=== PATIENT | female | born 1950 | race Caucasian/White ===

== ENCOUNTER 2016-05-05 10:01 | Inpatient (IN) | payer MEDICARE, BC ==
[~2016-05-05] VITALS: Ht 152.4 cm; Wt 47.8 kg
[2016-05-05] VITALS (20 sets, daily range): BP systolic 86–130; BP diastolic 53–67; PULSE 76–86; RESP 12–26; Ht 152.4 cm; Wt 47.8 kg
[~2016-05-05 10:01] MED LIST: CEFAZOLIN 2 GM/50 ML (PMX) 50 ML IVPB SCH; LACTATED RINGER'S 1L BAG IV* SCH
[2016-05-05] MEDS ORDERED: LIDOCAINE 2% (SDV) 5 ML INJ ONE (10:21)
[2016-05-05] MEDS ORDERED: FENTAnyl 50 MCG/ML VIAL ONE (10:21)
[2016-05-05] MEDS ORDERED: MIDAZOLAM 1 MG/ML 2 ML INJ ONE (10:21)
[2016-05-05] MEDS ORDERED: NEOSTIGMINE 3 MG/3 ML SYRINGE ONE (10:21)
[2016-05-05] MEDS ORDERED: ROCURONIUM 50 MG INJ ONE (10:21)
[2016-05-05] MEDS ORDERED: GLYCOPYRROLATE 1 MG INJ ONE (10:21)
[2016-05-05] MEDS ORDERED: PROPOFOL 20 ML ONE (10:21)
[2016-05-05] MEDS ORDERED: SUCCINYLCHOLINE CHLORIDE 100 MG/5 ML SYG IV ONE (10:22)
[2016-05-05] MEDS ORDERED: PROPOFOL 100 ML ONE (10:43)
[2016-05-05] MEDS ORDERED: BUPIVACAINE 0.25%/EPI (SDV) 30 ML INJ ONE ×2 (11:07→13:07)
[2016-05-05] MEDS ORDERED: SURGIFOAM POWDER 1 GM KIT ONE (11:07)
[2016-05-05] MEDS ORDERED: THROMBIN 5000 UNIT VIAL ONE ×2 (11:08→14:07)
[2016-05-05] MEDS ORDERED: CA CHLORIDE 10% 10 ML SYRINGE ONE ×2 (11:08→13:49)
[2016-05-05] MEDS ORDERED: POLYMYXIN/BACITRACIN 1L IRRIG ONE (11:08)
[2016-05-05] MEDS ORDERED: LEVO100T87 PO (11:18)
[2016-05-05] MEDS ORDERED: HRT ORAL (11:18)
--- NOTE | 2016-05-05 11:35 | HPN ---
Date/Time of Note Date/Time of Note DATE: 05/05/16 TIME: 11:35 Interval H&P Admission Note Pt. seen H&P reviewed: No system changes CHRIS POTTER PA-C May 05, 2016 11:35
[2016-05-05] MEDS ORDERED: CARISOPRODOL 350 MG TAB PO PRN (12:00)
[2016-05-05] MEDS ORDERED: ZOLPIDEM 5 MG TAB PO PRN (12:00)
[2016-05-05] MEDS ORDERED: BISACODYL 10 MG SUPP PR PRN (12:00)
[2016-05-05] MEDS ORDERED: DIPHENHYDRAMINE 50 MG INJ IV PRN ×2 (12:00→15:30)
[2016-05-05] MEDS ORDERED: HYDROmorphONE 1 MG/ML SYG IV PRN (12:00)
[2016-05-05] MEDS ORDERED: ACETAMINOPHEN 325 MG TAB PO PRN (12:00)
[2016-05-05] MEDS ORDERED: NALOXONE (0.4 MG/ML) INJ IV PRN (12:00)
[2016-05-05] MEDS ORDERED: traMADol 50 MG TAB PO PRN ×2 (12:00)
[2016-05-05] MEDS: D5W-0.45 NACL + KCL 20 MEQ 1,000 ML IV SCH ×3 (12:00→22:00)
[2016-05-05] MEDS ORDERED: AL HYDROX/MG HYDROX/SIMETH 30 ML CUP PO PRN (12:00)
[2016-05-05] MEDS ORDERED: CEPASTAT LOZENGE MT PRN (12:00)
[2016-05-05] MEDS ORDERED: HYDROmorphONE 0.2 MG/ML PCA IV SCH (12:00)
[2016-05-05] MEDS: CEFAZOLIN 1 GM/50 ML (PMX) 50 ML IVPB SCH ×2 (12:35→19:21)
[2016-05-05] MEDS ORDERED: DEXAMETHASONE 4 MG/ML 1 ML INJ ONE (12:37)
[2016-05-05] MEDS ORDERED: ONDANSETRON 4 MG INJ ONE (12:37)
[2016-05-05] MEDS ORDERED: EPHEDrine SULFATE 50 MG/5 ML SYG ONE (12:52)
[2016-05-05] MEDS ORDERED: CEFAZOLIN 1 GM INJ ONE (13:09)
--- NOTE | 2016-05-05 13:57 | RADRPT ---
PROCEDURE: XR Lumbar Spine. CLINICAL INDICATION: Back pain, intraoperative lumbar spine film. TECHNIQUE: Intraoperative cross-table lateral views of the lumbar spine were performed. COMPARISON: No prior studies are available for comparison. FINDINGS: Final images demonstrate intraoperative spinal markers between the spinous processes of L2 and L3, L 3 and L4, and L4 and L5. Lumbar spine demonstrates a normal lordosis diffuse osteopenia is seen.. Grade 1 anterolisthesis of L4-L5 by approximately 4 mm is noted. No fractures or destructive bony lesions are observed. Mild intervertebral disk space narrowing is seen throughout the spine. Facet arthrosis is noted througho ut the spine. Calcified atherosclerosis is seen in the aorta. IMPRESSION: Intraoperative spinal markers between the spinous processes L2 and L3, L3 and L4, and L4 and L5. Mild degenerative disk disease throughout the lumbar spine. Facet arthrosis throughout the lumbar spine. Calcified atherosclerosis in the aorta. Please see procedure note for details. Call report: A call report of the findings was made to Dr. Harmon in the O.R. at 1:56 PM on . RPTAT: AA .Axel Connolly MD, MD Date Time Electronically viewed and signed by .Axel Connolly MD, MD on 05/05/2016 13:57 .P/
[2016-05-05] MEDS ORDERED: GELATIN SIZE 100 SPONGE ONE (14:07)
[2016-05-05] MEDS ORDERED: THROMBIN(HUM PLAS)/FIBRINOG/CA 5 ML VIAL TOP ONE (14:31)
[2016-05-05] MEDS ORDERED: ATROPINE 1 MG/10 ML SYRINGE IV PRN (15:30)
[2016-05-05] MEDS ORDERED: EPHEDrine SULFATE 50 MG/5 ML SYG IV PRN (15:30)
[2016-05-05] MEDS ORDERED: FENTAnyl 50 MCG/ML VIAL IV PRN ×2 (15:30)
[2016-05-05] MEDS ORDERED: hydrALAzine 20 MG INJ IV PRN (15:30)
[2016-05-05] MEDS ORDERED: MEPERIDINE 25 MG INJ IV PRN (15:30)
[2016-05-05] MEDS ORDERED: ONDANSETRON 4 MG INJ IV PRN (15:30)
[2016-05-05] MEDS ORDERED: MIDAZOLAM 1 MG/ML 2 ML INJ IV PRN (15:30)
[2016-05-05] MEDS ORDERED: OXYCODONE/ACETAMINOPHEN (5/325) TAB PO PRN (15:30)
[2016-05-05] MEDS ORDERED: LABETALOL HCL 20MG INJ IV PRN (15:30)
--- NOTE | 2016-05-05 17:48 | CONS ---
Date/Time of Note Date/Time of Note DATE: 05/05/16 TIME: 17:42 Assessment/Plan Assessment/Plan Problems: (1) Acquired hypothyroidism Status: Chronic Comment: She will be continued on her outpatient dosage of levothyroxine. Please know regarding her hormone replacement therapy with Activella that will be on hold temporarily can be resumed when she is successfully postop (2) Status post lumbar laminectomy Status: Acute Comment: She seen in the postanesthesia care unit postoperatively. At this time there is no evidence of untoward side effect or postoperative complications. Patient is fully awake and alert. We will keep an eye on her exam especially regarding any type of soft tissue injury Consultation Date/Type/Reason Admit Date/Time May 05, 2016 at 10:01 Date of Consultation: May 05, 2016 Type of Consultation: Internal medicine Reason for Consultation Postoperative management of medical issues Referring Provider: JASON BLEDSOE MD Pleasant 65-year-old female immediately postop from back surgery. At this time she is conversant awake and alert. She does complains of some tenderness in the right upper lip area and pain in her back. Constitutional: no complaints (No fevers chills or sweats) Eyes: no complaints ENT: no complaints Respiratory: no complaints (No shortness of breath) Cardiovascular: no complaints (No chest pain no palpitations) Gastrointestinal: no complaints (No nausea no vomiting) Genitourinary: no complaints Musculoskeletal: back pain (Surgical incision site) Skin: other (Pain right upper lip area) Neurologic: no complaints Endocrine: no complaints Lymphatic: no complaints Psychological: nl mood/affect, no complaints Past Medical History History colon cancer status post hemicolectomy Medical History: hypothyroid Past Surgical History Status post C-spine laminectomy; status post tonsillectomy; status post hemicolectomy Family History Significant Family History: vascular disease (Status post CVA in father) Social History Alcohol Use: none Smoking Status: Former smoker Drug Use: none Exam/Review of Systems Vital Signs Vitals Vital Signs Date Time Temp Pulse Resp B/P Pulse Ox O2 Delivery O2 Flow Rate FiO2 05/05/16 17:27 23 05/05/16 17:26 84 115/63 100 Nasal Cannula 05/05/16 17:17 2.0 05/05/16 16:39 98.6 Exam Constitutional: alert, oriented Psych: nl mood/affect, no complaints Head: atraumatic, normocephalic Eyes: EOMI, nl conjunctiva, nl lids, nl sclera ENMT: mucosa pink and moist, nl external ears & nose, nl nasal mucosa & septum , other (Some bruising on the right upper lip) Neck: non-tender, supple Respiratory: clear to auscultation, normal air movement Cardiovascular: nl pulses, regular rate and rhythm Gastrointestinal: nl liver, spleen, non-tender, soft Extremities: normal pulses Neurological: DRYING CAN WORKER II-XII intact, nl mental status, nl speech, nl strength Skin: other (See above) Medications Medications Current Medications Lactated Ringer's 1000 ml 1,000 ml OC IV* ; Start 05/05/16 at 06:00; Stop at 19:00 Potassium Chloride/Dextrose/ Sod Cl (D5-1/2ns + KCl 20 Meq) 1,000 ml @ 100 mls/ hr Q10H IV ; Start 05/05/16 at 12:00 Hydromorphone HCl 0.2 mg 0.2 mg Q1H PRN IV BREAKTHROUGH PAIN; Start 05/05/16 at 12:00 Cefazolin Sodium (Ancef 1 Gm/50 ml (Pmx)) 50 ml @ 100 mls/hr Q8H IVPB ; Start 05/05/16 at 12:00; Stop 05/06/16 at 04:29 Zolpidem Tartrate (Ambien) 5 mg HS PRN PO INSOMNIA; Start 05/05/16 at 12:00 Ondansetron HCl (Zofran Inj) 4 mg Q6H PRN IV NAUSEA AND/OR VOMITING; Start at 12:00 Bisacodyl (Dulcolax Supp) 10 mg DAILY PRN [place] CONSTIPATION; Start 05/05/16 at 12 :00 Docusate Sodium (Colace) 100 mg BID PO ; Start 05/05/16 at 21:00 Al Hydrox/Mg Hydrox/Simethicone (Mag-Al Plus) 15 ml Q6H PRN PO CONSTIPATION/ DYSPEPSIA; Start 05/05/16 at 12:00 Acetaminophen (Tylenol Tab) 650 mg Q4H PRN PO HILARIO OR TEMP GREATER THAN 101.3F; Start 05/05/16 at 12:00 Carisoprodol (Soma) 350 mg TID PRN PO MUSCLE SPASMS; Start 05/05/16 at 12:00 Phenol (Cepastat Lozenge) 1 lozenge PRN PRN MT SORE THROAT; Start 05/05/16 at 12:00 Diphenhydramine HCl (Benadryl) 25 mg Q6H PRN IV ITCHING; Start 05/05/16 at 12: 00 Naloxone HCl (Narcan) 0.2 mg Q2M PRN IV RR 8 BREATHS/MIN OR LESS; Start at 12:00 Hydromorphone HCl (Dilaudid QUILL COLLECTOR) QUILL COLLECTOR to be started in PACU Q4PCA IV Last administered on 05/05/16t 16:48; Admin Dose 6 MG; Start 05/05/16 at 12:00; Status Future Hold Miscellaneous Information 1. Hold QUILL COLLECTOR at 1,000... QUILL COLLECTOR IV ; Start 05/05/16 at 12: 00 Tramadol HCl (Ultram) 100 mg ONCE@0930 PO ; Start 05/06/16 at 09:30; Stop at 12:00 Tramadol HCl (Ultram) 50 mg Q4H PRN PO PAIN LEVEL 1-5; Start 05/06/16 at 10:00 Tramadol HCl (Ultram) 100 mg Q4H PRN PO PAIN LEVEL 6-10; Start 05/06/16 at 10: 00 JORGE SAL MD May 05, 2016 17:48
--- NOTE | 2016-05-05 19:38 | OPR ---
DATE OF OPERATION: 05/05/2016 PREOPERATIVE DIAGNOSIS: L4-L5, L5-S1 spondylolisthesis and stenosis. POSTOPERATIVE DIAGNOSES: 1. L4-L5, L5-S1 spondylolisthesis and stenosis. 2. Dural tear. PROCEDURE: 1. Central decompressive laminectomy at L3-L4 and L4-L5 with decompression of L3, L4, L5 nerve root s bilaterally. 2. Dural repair x2 with Duragen and Evicel as well as 4-0 Nurolon stitch. 3. Use of operative microscope. 4. Lateral localizing film x2. 5. Intraoperative neuromonitoring (3 hours). PRIMARY SURGEON: Carlitos Harmon MD CONTESTANT COORDINATOR: Hawa Walden PA-C NEED FOR OFFICE MACHINES SALES REPRESENTATIVE: During this spinal surgical procedure, my patient clerical assistant was used to retrac t and protect the spinal nerves and dural sac. My patient clerical assistant also employed the suction catheters to evacuate blood from the surgical field to improve visualization of the neural structures. The miguel tant was medically necessary to facilitate the completion of the surgery in a safe and expeditious m rasheed. State of [place] regulations, as well as hospital bylaws, preclude the use of non-license d health care personnel, such as operating room technicians, to perform these functions. FINDINGS: Neuromonitoring at start of the case revealed bilateral L3 amplitude down 30%, bilateral L4 amplitude down 70%, left L5 amplitude down 30%, right L5 amplitude down 60%, left S1 amplitude do wn 40%, right S1 amplitude down 30%. The patient had severe stenosis at L3-L4 and L4-L5 with listhe sis and diastasis of the L3-L4 facet joint. A dural tear was encountered at the L3-L4 level bilater ally. ESTIMATED BLOOD LOSS: 125 mL DRAINS: One. SPECIMENS: 1. Spinous process of L3 and L4. 2. Possible ligamentum cyst. COMPLICATIONS OF PROCEDURES: Dural tear was encountered. ANESTHESIOLOGIST: Grady Navarrete MD TYPE OF ANESTHESIA: General. HISTORY AND INDICATIONS FOR PROCEDURE: This is a 65-year-old female who has had previous laminectom y in the cervical spine. She developed radiculopathy in lower extremities from spinal stenosis in l umbar spine. She had failed nonoperative measures. Therefore, I recommended proceeding with the ab ove-mentioned surgery. Preoperatively discussed risks, benefits and alternatives. She understood a nd wished to proceed. DESCRIPTION OF PROCEDURE IN DETAIL: The patient was identified in preoperative holding area, given Ancef antibiotic, taken to the operating room, where she was successfully placed under general anest hesia by Dr. Navarrete. Neuromonitoring leads were placed. Sequential compressive devices were applie d. Francis catheter was introduced. Neuromonitoring was utilized during the procedure for 3 hours an d 15 minutes to include SSEP, MEP and EMG. Start time was 1:15, closure time was 4:15 p.m. The patient was placed in downward turned prone position over William frame. All bony prominences we re padded. The back was then prepped, draped in usual sterile fashion. Spinal needles were placed and lateral localizing films obtained to confirm the correct levels. Once this was confirmed, the p araspinal musculature was injected with 0.25% Marcaine and epinephrine. Incision was then made over the L3-L4 and L4-L5 levels. Incision was taken down to the dorsal fascia, which was incised with B ovie cautery. Then subperiosteally dissected the L3 and L4 lamina bilaterally. The patient had sac ralized L5. She had excessive lordosis. I placed Kochers around the spinous processes and took a l ateral film to confirm the correct levels. Once this was confirmed, central decompressive laminecto my was performed at the L3-L4 and L4-L5 levels using Addie rongeurs, Emmaell rongeurs, curettes an d Kerrison punches. I decompressed the lateral recess and removed the ligamentum flavum centrally a nd decompressed the L3, L4, L5 nerve roots bilaterally. The ligamentum flavum on the right side was quite adherent to the dura, and I was suspicious that there may be a ligamentum cyst here, and ther efore the ligamentum flavum was sent for specimen. I encountered tearing of the dura bilaterally at the L3-L4 level at the location where the stenosis was occurring. The tear was essentially just th rough the dura, and it was unclear if this was due to erosion. Given the tears, I brought the micro scope in. I spent 60 minutes repairing both tears. I used 4-0 Nurolon stitches under the microscop e and put running sutures through the tears bilaterally. This gave a good closure, but to augment t his, after irrigating the wound, I placed DuraGen followed by placement of Evicel while respirations were held for 2 to 3 minutes. Once this was done, the microscope was taken off the field. I place d a deep subfascial drain and closed deep fascia with #1 Stratafix suture. Closed subcutaneous tiss ue with 2-0 Vicryl stitch. A 4-0 Monocryl closure was then performed. Dermabond with sterile dress ings then applied. The patient was then awakened from anesthesia and taken to recovery room in stab le condition. Lap, sponge and instrument counts correct x2. The patient will be admitted to [facility] for routine postoperative care to include pain contr ol, neurovascular checks and antibiotic therapy. Physical therapy will be held, and on postop day 1 , we will check if she has any headaches. If there are no headaches, will allow her to get out of b ed. Otherwise, she will have just bathroom privileges. This was discussed with her in [facility] after the case. Dictated By: CARLITOS PEDERSEN/DEVIKA Conf#: [id number] DID#: [id number]
[2016-05-05] MEDS: DOCUSATE SODIUM 100 MG CAP PO SCH (21:00)
[2016-05-05] MEDS ORDERED: VITAMIN A & D 5 GM OINT PACKET TOP ONE (22:32)
[2016-05-06] MEDS: CEFAZOLIN 1 GM/50 ML (PMX) 50 ML IVPB SCH (04:17)
[2016-05-06 05:03] LABS: BASOPHILS % 0.1 % (0.0-2.0); HEMATOCRIT 35.1 % (37.0-47.0); LYMPHOCYTES # 0.7 10^3/ul (0.8-2.9); LYMPHOCYTES % 6.5 % (15.0-51.0); MEAN CORPUSCULAR HEMOGLOBIN 32.5 pg (29.0-33.0); MEAN CORPUSCULAR HGB CONC 34.3 g/dl (32.0-37.0); MEAN CORPUSCULAR VOLUME 94.8 fl (82.0-101.0); MEAN PLATELET VOLUME 8.1 fl (7.4-10.4); MONOCYTE # 0.7 10^3/ul (0.3-0.9); MONOCYTES % 6.7 % (0.0-11.0); NEUTROPHIL # 8.8 10^3/ul (1.6-7.5); NEUTROPHILS % 86.7 % (39.0-77.0); PLATELET COUNT 151 10^3/UL (140-440); RED CELL DISTRIBUTION WIDTH 12.9 % (11.5-14.5); UNCORRECTED WBC 10.1 10^3/ul (4.8-10.8); WHITE BLOOD COUNT 10.1 10^3/ul (4.8-10.8)
[2016-05-06 05:06] LABS: CONDITION 1
[2016-05-06 05:36] LABS: POTASSIUM 4.8 mmol/L (3.5-5.1)
[2016-05-06 05:38] LABS: CREATININE 0.97 mg/dl (0.44-1.00)
[2016-05-06 05:39] LABS: CALCIUM 8.6 mg/dl (8.4-10.2); MAGNESIUM 1.7 mg/dl (1.7-2.5)
[2016-05-06] MEDS: LEVOTHYROXINE 100 MCG TAB PO SCH (05:42)
[2016-05-06] MEDS: ONDANSETRON 4 MG INJ IV PRN (05:43)
[2016-05-06 07:00] VITALS: BP 109/69; RESP 20
[2016-05-06] MEDS ORDERED: CAFFEINE 200 MG TABLET PO STA (08:17)
--- NOTE | 2016-05-06 08:22 | PN ---
Date/Time of Note Date/Time of Note DATE: 05/06/16 TIME: 08:20 Assessment/Plan Lines/Catheters IV Catheter Type (from Nrs): Peripheral IV Francis in Place (from Nrs): Yes Assessment/Plan Assessment/Plan The patient is one day status post lumbar decompression with dural tear and repair. She has a headache today but states that she gets headaches daily. I will prescribe caffeine tablets and a bolus of normal saline and reevaluate her in a few hours to see if we can get her out of bed and start therapy. Subjective 24 Hr Interval Summary Complains of headaches and nausea Exam/Review of Systems Vital Signs Vitals Vital Signs Date Time Temp Pulse Resp B/P Pulse Ox O2 Delivery O2 Flow Rate FiO2 05/06/16 07:00 97.7 86 20 109/69 97 05/05/16 21:05 Nasal Cannula 2.0 Intake and Output 05/05/16 05/05/16 05/06/16 15:00 23:00 07:00 Intake Total 1100 ml 1900 ml Output Total 445 ml 1440 ml Balance 655 ml 460 ml Exam Free Text/Dictation The patient is neurovascularly intact aside from numbness in the feet. She is alert and oriented. She has no calf tenderness. Results Result Diagram: 05/06/16 0428 05/06/16 0428 JASON BLEDSOE MD May 06, 2016 08:22
[2016-05-06] MEDS ORDERED: SOD CHLORIDE 0.9% 500 ML IV ONE (08:30)
[2016-05-06] MEDS: DOCUSATE SODIUM 100 MG CAP PO SCH ×2 (09:11→20:50)
[2016-05-06] MEDS ORDERED: traMADol 50 MG TAB PO SCH (09:30)
[2016-05-06] MEDS ORDERED: traMADol 50 MG TAB PO PRN (10:00)
[2016-05-06] MEDS: D5W-0.45 NACL + KCL 20 MEQ 1,000 ML IV SCH (12:09)
--- NOTE | 2016-05-06 14:08 | PN ---
Date/Time of Note Date/Time of Note DATE: 05/06/16 TIME: 14:06 Assessment/Plan VTE Prophylaxis VTE Prophylaxis Intervention: SCD's Lines/Catheters IV [facility] Peripheral IV Urinary Cath still in place: Yes Reason Cath still needed: urinary retention Assessment/Plan Problems: (1) Headache disorder Status: Chronic Comment: Careful review of systems and history with this disorder suggests this is actually a migrainous variant. What she describes as sinus symptoms are actually her prodrome or aura with a runny nose as is inversion of the autonomic discharge. No additional medications are presently indicated. (2) Acquired hypothyroidism Status: Chronic Comment: On replacement therapy (3) Status post lumbar laminectomy Status: Acute Comment: Recuperating nicely. Please see Dr. Harmon's note Subjective 24 Hr Interval Summary Constitutional: no complaints Eyes: no complaints ENT: no complaints Respiratory: no complaints Cardiovascular: no complaints Gastrointestinal: no complaints Neurologic: headache Exam/Review of Systems Vital Signs Vitals Vital Signs Date Time Temp Pulse Resp B/P Pulse Ox O2 Delivery O2 Flow Rate FiO2 05/06/16 10:00 20 05/06/16 07:00 97.7 86 109/69 97 05/05/16 21:05 Nasal Cannula 2.0 Intake and Output 05/05/16 05/05/16 05/06/16 15:00 23:00 07:00 Intake Total 1100 ml 1900 ml Output Total 445 ml 1440 ml Balance 655 ml 460 ml Exam Constitutional: alert, oriented Neck: non-tender, supple Respiratory: clear to auscultation, normal air movement Cardiovascular: nl pulses, regular rate and rhythm Gastrointestinal: nl liver, spleen, non-tender, soft Results Result Diagram: 05/06/16 0428 05/06/16 0428 Results 24 hrs Laboratory Tests Test 05/06/16 04:28 Anion Gap 13 Basophils # 0.0 Basophils % 0.1 Blood Urea Nitrogen 17 Calcium Level 8.6 Carbon Dioxide Level 27 Chloride Level 104 Creatinine 0.97 Eosinophils # 0.0 Eosinophils % 0.0 Glucose Level 125 Hematocrit 35.1 L Hemoglobin 12.0 Lymphocytes # 0.7 L Lymphocytes % 6.5 L Magnesium Level 1.7 Mean Corpuscular Hemoglobin 32.5 Mean Corpuscular Hemoglobin Concent 34.3 Mean Corpuscular Volume 94.8 Mean Platelet Volume 8.1 Monocytes # 0.7 Monocytes % 6.7 Neutrophils # 8.8 H Neutrophils % 86.7 H Nucleated Red Blood Cells # 0.0 Nucleated Red Blood Cells % 0.0 Platelet Count 151 Potassium Level 4.8 Red Blood Count 3.70 L Red Cell Distribution Width 12.9 Sodium Level 139 White Blood Count 10.1 Medications Medications Current Medications Potassium Chloride/Dextrose/ Sod Cl (D5-1/2ns + KCl 20 Meq) 1,000 ml @ 100 mls/ hr Q10H IV Last administered on 05/06/16 12:09; Admin Dose 100 MLS/HR; Start 05/05/16 at 12:00 Hydromorphone HCl (Dilaudid) 0.2 mg Q1H PRN IV BREAKTHROUGH PAIN; Start at 12:00 Zolpidem Tartrate (Ambien) 5 mg HS PRN PO INSOMNIA; Start 05/05/16 at 12:00 Ondansetron HCl (Zofran Inj) 4 mg Q6H PRN IV NAUSEA AND/OR VOMITING Last administered on 05/06/16 05:43; Admin Dose 4 MG; Start 05/05/16 at 12:00 Bisacodyl (Dulcolax Supp) 10 mg DAILY PRN [place] CONSTIPATION; Start 05/05/16 at 12 :00 Docusate Sodium (Colace) 100 mg BID PO Last administered on 05/06/16 09:11; Admin Dose 100 MG; Start 05/05/16 at 21:00 Al Hydrox/Mg Hydrox/Simethicone (Mag-Al Plus) 15 ml Q6H PRN PO CONSTIPATION/ DYSPEPSIA; Start 05/05/16 at 12:00 Acetaminophen (Tylenol Tab) 650 mg Q4H PRN PO HILARIO OR TEMP GREATER THAN 101.3F; Start 05/05/16 at 12:00 Carisoprodol (Soma) 350 mg TID PRN PO MUSCLE SPASMS; Start 05/05/16 at 12:00 Phenol (Cepastat Lozenge) 1 lozenge PRN PRN [place] SORE THROAT; Start 05/05/16 at 12:00 Diphenhydramine HCl (Benadryl) 25 mg Q6H PRN IV ITCHING; Start 05/05/16 at 12: 00 Naloxone HCl (Narcan) 0.2 mg Q2M PRN IV RR 8 BREATHS/MIN OR LESS; Start at 12:00 Hydromorphone HCl (Dilaudid OCCUPATIONAL THERAPY TECHNICIAN) OCCUPATIONAL THERAPY TECHNICIAN to be started in PACU Q4PCA IV Last administered on 05/05/16 16:48; Admin Dose 6 MG; Start 05/05/16 at 12:00; Status Future Hold Miscellaneous Information 1. Hold OCCUPATIONAL THERAPY TECHNICIAN at 1,000... OCCUPATIONAL THERAPY TECHNICIAN IV ; Start 05/05/16 at 12: 00 Tramadol HCl (Ultram) 50 mg Q4H PRN PO PAIN LEVEL 1-5; Start 05/06/16 at 10:00 Tramadol HCl (Ultram) 100 mg Q4H PRN PO PAIN LEVEL 6-10; Start 05/06/16 at 10: 00 Levothyroxine Sodium (Synthroid) 100 mcg DAILY@06 PO Last administered on 05:42; Admin Dose 100 MCG; Start 05/06/16 at 06:00 JORGE SAL MD May 06, 2016 14:08
[2016-05-06 15:04] VITALS: BP 106/58; PULSE 81; RESP 18
[2016-05-06] MEDS: traMADol 50 MG TAB PO PRN (19:24)
[2016-05-06 19:46] VITALS: BP 106/57; RESP 18
[2016-05-07] MEDS: ONDANSETRON 4 MG INJ IV PRN ×4 (03:35→15:18)
[2016-05-07] MEDS: traMADol 50 MG TAB PO PRN (03:40)
[2016-05-07] MEDS: LEVOTHYROXINE 100 MCG TAB PO SCH (05:41)
[2016-05-07 07:49] VITALS: BP 115/57; RESP 19
[2016-05-07] MEDS: DOCUSATE SODIUM 100 MG CAP PO SCH ×2 (09:09→20:40)
--- NOTE | 2016-05-07 09:39 | PN ---
Date/Time of Note Date/Time of Note DATE: 05/07/16 TIME: 09:37 Assessment/Plan Lines/Catheters IV Catheter Type (from Nrs): Peripheral IV Francis in Place (from Nrsg): No Assessment/Plan Assessment/Plan The patient is status post decompression complicated by dural tear which was repaired. The patient is having headaches and nausea. She gets daily headaches but this appears different. This could be due to the CSF leak and as such I have held physical therapy and will place her on bed rest with bathroom privileges. I put the drain to gravity suction only. I cannot tell if there is CSF in the drain. I will reevaluate her in several hours. Subjective 24 Hr Interval Summary Complains of nausea and headache Exam/Review of Systems Vital Signs Vitals Vital Signs Date Time Temp Pulse Resp B/P Pulse Ox O2 Delivery O2 Flow Rate FiO2 05/07/16 07:49 99.7 89 19 115/57 94 05/06/16 15:04 Room Air 05/05/16 21:05 2.0 Intake and Output 05/06/16 05/06/16 05/07/16 15:00 23:00 07:00 Intake Total 1500 ml 600 ml Output Total 1210 ml 80 ml Balance 290 ml 520 ml Exam Free Text/Dictation There is drainage on the bandages. The patient is neurovascularly intact Results Result Diagram: 05/06/16 0428 05/06/16 0428 JASON BLEDSOE MD May 07, 2016 09:39
--- NOTE | 2016-05-07 17:59 | PN ---
Date/Time of Note Date/Time of Note DATE: 05/07/16 TIME: 17:57 Assessment/Plan VTE Prophylaxis VTE Prophylaxis Intervention: other Lines/Catheters IV [facility] Saline Lock Urinary Cath still in place: No Assessment/Plan Problems: (1) Headache disorder Status: Chronic Comment: Noted. At this time is settling down (2) Status post lumbar laminectomy Status: Acute Comment: As per the dictations from Dr. Rob France. It is quite possible she has a CSF leak after the dural tear. Continue to observe her I am not under the impression that she is developing a major untoward complications and again there is been no evidence of infection or signs of infection Subjective 24 Hr Interval Summary Free Text/Dictation Patient reports that she had a rather significant headache earlier today with nausea that is settling down now. She denies any chest pain shortness of breath Constitutional: no complaints (Denies fevers chills or sweats) Respiratory: no complaints (No shortness of breath) Cardiovascular: no complaints (No chest pain palpitations) Gastrointestinal: no complaints (Nausea has resolved and she is eating dinner) Genitourinary: no complaints Exam/Review of Systems Vital Signs Vitals Vital Signs Date Time Temp Pulse Resp B/P Pulse Ox O2 Delivery O2 Flow Rate FiO2 05/07/16 07:49 99.7 89 19 115/57 94 05/06/16 15:04 Room Air 05/05/16 21:05 2.0 Intake and Output 05/06/16 05/06/16 05/07/16 15:00 23:00 07:00 Intake Total 1500 ml 600 ml Output Total 1210 ml 80 ml Balance 290 ml 520 ml Exam Constitutional: alert, oriented Neck: non-tender, supple Respiratory: clear to auscultation, normal air movement Cardiovascular: nl pulses, regular rate and rhythm Musculoskeletal: other (Please see nursing notes about the drainage from the surgical wound site. At this time and is recently been changed so there is not a lot for me to see.) Results Result Diagram: 05/06/16 0428 05/06/16 0428 Medications Medications Current Medications Hydromorphone HCl (Dilaudid) 0.2 mg Q1H PRN IV BREAKTHROUGH PAIN Last administered on 05/07/16t 15:18; Admin Dose 0.2 MG; Start 05/05/16 at 12:00 Zolpidem Tartrate (Ambien) 5 mg HS PRN PO INSOMNIA; Start 05/05/16 at 12:00 Ondansetron HCl (Zofran Inj) 4 mg Q6H PRN IV NAUSEA AND/OR VOMITING Last administered on 05/07/16 15:18; Admin Dose 4 MG; Start 05/05/16 at 12:00 Bisacodyl (Dulcolax Supp) 10 mg DAILY PRN [place] CONSTIPATION; Start 05/05/16 at 12 :00 Docusate Sodium (Colace) 100 mg BID PO Last administered on 05/07/16 09:09; Admin Dose 100 MG; Start 05/05/16 at 21:00 Al Hydrox/Mg Hydrox/Simethicone (Mag-Al Plus) 15 ml Q6H PRN PO CONSTIPATION/ DYSPEPSIA; Start 05/05/16 at 12:00 Acetaminophen (Tylenol Tab) 650 mg Q4H PRN PO HILARIO OR TEMP GREATER THAN 101.3F Last administered on 05/07/16 14:29; Admin Dose 650 MG; Start 05/05/16 at 12:00 Carisoprodol (Soma) 350 mg TID PRN PO MUSCLE SPASMS Last administered on 09:09; Admin Dose 350 MG; Start 05/05/16 at 12:00 Phenol (Cepastat Lozenge) 1 lozenge PRN PRN [place] SORE THROAT Last administered on 05/07/16 03:40; Admin Dose 1 LOZENGE; Start 05/05/16 at 12:00 Diphenhydramine HCl (Benadryl) 25 mg Q6H PRN IV ITCHING; Start 05/05/16 at 12: 00 Naloxone HCl (Narcan) 0.2 mg Q2M PRN IV RR 8 BREATHS/MIN OR LESS; Start at 12:00 Hydromorphone HCl (Dilaudid BRANCH ASSOCIATE TELLER) BRANCH ASSOCIATE TELLER to be started in PACU Q4PCA IV Last administered on 05/05/16 16:48; Admin Dose 6 MG; Start 05/05/16 at 12:00; Status Future Hold Miscellaneous Information 1. Hold BRANCH ASSOCIATE TELLER at 1,000... BRANCH ASSOCIATE TELLER IV ; Start 05/05/16 at 12: 00 Tramadol HCl (Ultram) 50 mg Q4H PRN PO PAIN LEVEL 1-5 Last administered on 05/07 03:40; Admin Dose 50 MG; Start 05/06/16 at 10:00 Tramadol HCl (Ultram) 100 mg Q4H PRN PO PAIN LEVEL 6-10; Start 05/06/16 at 10: 00 Levothyroxine Sodium (Synthroid) 100 mcg DAILY@06 PO Last administered on 05:41; Admin Dose 100 MCG; Start 05/06/16 at 06:00 JORGE SAL MD May 07, 2016 17:59
[2016-05-07 20:17] VITALS: BP 110/78; RESP 20
[2016-05-08] MEDS: LEVOTHYROXINE 100 MCG TAB PO SCH (06:09)
[2016-05-08 07:33] VITALS: BP 114/59; RESP 19
--- NOTE | 2016-05-08 08:09 | PN ---
Date/Time of Note Date/Time of Note DATE: 05/08/16 TIME: 08:07 Assessment/Plan Lines/Catheters IV Catheter Type (from Nrsg): Saline Lock Francis in Place (from Nrsg): No Assessment/Plan Assessment/Plan The patient is postop day #3 after lumbar decompression complicated by dural tear. She reports headaches but feels that this is due to her neck. There does not appear to be any signs of a cervical infection. She has gotten up and her headaches do not change. We will get her up with physical therapy today. If her headache is improved she may be discharged later today or tomorrow. She may shower. Subjective 24 Hr Interval Summary Reports neck pain Exam/Review of Systems Vital Signs Vitals Vital Signs Date Time Temp Pulse Resp B/P Pulse Ox O2 Delivery O2 Flow Rate FiO2 05/08/16 07:33 98.0 88 19 114/59 98 05/06/16 15:04 Room Air 05/05/16 21:05 2.0 Intake and Output 05/07/16 05/07/16 05/08/16 15:00 23:00 07:00 Intake Total 700 ml 500 ml Balance 700 ml 500 ml Exam Free Text/Dictation Incision is clean and dry. She is neurologically intact. Results Result Diagram: 05/06/16 0428 05/06/16 0428 JASON BLEDSOE MD May 08, 2016 08:08
[2016-05-08] MEDS: DOCUSATE SODIUM 100 MG CAP PO SCH (08:59)
[2016-05-08] MEDS: traMADol 50 MG TAB PO PRN (09:00)
--- NOTE | 2016-05-08 09:14 | PN ---
Date/Time of Note Date/Time of Note DATE: 05/08/16 TIME: 09:13 Assessment/Plan VTE Prophylaxis VTE Prophylaxis Intervention: SCD's Lines/Catheters IV Catheter Type (from Nrs): Saline Lock Urinary Cath still in place: No Assessment/Plan Problems: (1) Headache disorder Status: Chronic Comment: This may be settling down. There is no meningismus on exam or other physical findings. She did have a small fever briefly last night. I will check CBC and sed rate and if okay and the patient was able to get up with physical therapy then I concur about her discharge (2) Status post lumbar laminectomy Status: Acute Comment: We will see how she does with physical therapy hopefully she can be discharged home today Subjective 24 Hr Interval Summary Constitutional: no complaints Eyes: no complaints ENT: no complaints Respiratory: no complaints Cardiovascular: no complaints Gastrointestinal: no complaints Neurologic: headache (Headache has improved significantly today. Please see note from Dr. Rob France. We will try and get the patient up and if she is doing okay and her labs are okay) Exam/Review of Systems Vital Signs Vitals Vital Signs Date Time Temp Pulse Resp B/P Pulse Ox O2 Delivery O2 Flow Rate FiO2 05/08/16 07:33 98.0 88 19 114/59 98 05/06/16 15:04 Room Air 05/05/16 21:05 2.0 Intake and Output 05/07/16 05/07/16 05/08/16 15:00 23:00 07:00 Intake Total 700 ml 500 ml Balance 700 ml 500 ml Exam Constitutional: alert, oriented Neck: non-tender, supple Respiratory: clear to auscultation, normal air movement Cardiovascular: nl pulses, regular rate and rhythm Gastrointestinal: nl liver, spleen, non-tender, soft Results Result Diagram: 05/06/16 0428 05/06/16 0428 Medications Medications Current Medications Hydromorphone HCl (Dilaudid) 0.2 mg Q1H PRN IV BREAKTHROUGH PAIN Last administered on 05/07/16t 15:18; Admin Dose 0.2 MG; Start 05/05/16 at 12:00 Zolpidem Tartrate (Ambien) 5 mg HS PRN PO INSOMNIA; Start 05/05/16 at 12:00 Ondansetron HCl (Zofran Inj) 4 mg Q6H PRN IV NAUSEA AND/OR VOMITING Last administered on 05/07/16 15:18; Admin Dose 4 MG; Start 05/05/16 at 12:00 Bisacodyl (Dulcolax Supp) 10 mg DAILY PRN [place] CONSTIPATION; Start 05/05/16 at 12 :00 Docusate Sodium (Colace) 100 mg BID PO Last administered on 05/08/16 08:59; Admin Dose 100 MG; Start 05/05/16 at 21:00 Al Hydrox/Mg Hydrox/Simethicone (Mag-Al Plus) 15 ml Q6H PRN PO CONSTIPATION/ DYSPEPSIA; Start 05/05/16 at 12:00 Acetaminophen (Tylenol Tab) 650 mg Q4H PRN PO HILARIO OR TEMP GREATER THAN 101.3F Last administered on 05/07/16 14:29; Admin Dose 650 MG; Start 05/05/16 at 12:00 Carisoprodol (Soma) 350 mg TID PRN PO MUSCLE SPASMS Last administered on 09:09; Admin Dose 350 MG; Start 05/05/16 at 12:00 Phenol (Cepastat Lozenge) 1 lozenge PRN PRN MT SORE THROAT Last administered on 05/07/16 03:40; Admin Dose 1 LOZENGE; Start 05/05/16 at 12:00 Diphenhydramine HCl (Benadryl) 25 mg Q6H PRN IV ITCHING; Start 05/05/16 at 12: 00 Naloxone HCl (Narcan) 0.2 mg Q2M PRN IV RR 8 BREATHS/MIN OR LESS; Start at 12:00 Hydromorphone HCl (Dilaudid DISPATCHER [employer]ICE CHIEF) DISPATCHER [employer]ICE CHIEF to be started in PACU Q4PCA IV Last administered on 05/05/16 16:48; Admin Dose 6 MG; Start 05/05/16 at 12:00; Status Future Hold Miscellaneous Information 1. Hold DISPATCHER SERVICE CHIEF at 1,000... DISPATCHER [employer] CHIEF IV ; Start 05/05/16 at 12: 00 Tramadol HCl (Ultram) 50 mg Q4H PRN PO PAIN LEVEL 1-5 Last administered on 05/08 09:00; Admin Dose 50 MG; Start 05/06/16 at 10:00 Tramadol HCl (Ultram) 100 mg Q4H PRN PO PAIN LEVEL 6-10; Start 05/06/16 at 10: 00 Levothyroxine Sodium (Synthroid) 100 mcg DAILY@06 PO Last administered on 06:09; Admin Dose 100 MCG; Start 05/06/16 at 06:00 JORGE SAL MD May 08, 2016 09:14
[2016-05-08 10:19] LABS: EOSINOPHILS % 0.4 % (0.0-7.0); HEMOGLOBIN 12.3 g/dl (12.0-16.0); LYMPHOCYTES # 0.8 10^3/ul (0.8-2.9); LYMPHOCYTES % 9.9 % (15.0-51.0); MEAN CORPUSCULAR HEMOGLOBIN 32.3 pg (29.0-33.0); MEAN PLATELET VOLUME 8.5 fl (7.4-10.4); MONOCYTE # 0.6 10^3/ul (0.3-0.9); MONOCYTES % 7.4 % (0.0-11.0); NEUTROPHIL # 6.7 10^3/ul (1.6-7.5); NEUTROPHILS % 82.3 % (39.0-77.0); PLATELET COUNT 135 10^3/UL (140-440); RED BLOOD COUNT 3.79 10^6/ul (4.20-5.40); RED CELL DISTRIBUTION WIDTH 13.1 % (11.5-14.5); UNCORRECTED WBC 8.1 10^3/ul (4.8-10.8); WHITE BLOOD COUNT 8.1 10^3/ul (4.8-10.8)
[2016-05-08 10:22] LABS: CONDITION 1
[2016-05-08 10:30] LABS: POTASSIUM 3.7 mmol/L (3.5-5.1)
[2016-05-08 10:33] LABS: CREATININE 0.95 mg/dl (0.44-1.00)
[2016-05-08 10:34] LABS: CALCIUM 9.1 mg/dl (8.4-10.2)
[2016-05-08 14:14] VITALS: BP 106/57; PULSE 82; RESP 18
--- NOTE | 2016-05-09 08:35 | DS ---
DATE OF ADMISSION: 05/05/2016 DATE OF DISCHARGE: 05/08/2016 ADMITTING DIAGNOSIS: Lumbar stenosis. DISCHARGE DIAGNOSIS: Status post lumbar decompression with dural repair. PROCEDURE: Patient taken to the operating room on May 05 and underwent lumbar decompression wi th dural repair. HOSPITAL COURSE: The patient was admitted to the [facility] after undergoing the above procedu re. Due to a dural tear she was on bed rest overnight. The following morning, she did have headach es. It was unclear if this was due to her cervical disease or from a dural tear. We gave her caffe ine and fluids. We slowly allowed her to ambulate and by May 08 she was deemed stable for disc harge and followup arranged with the undersigned. Dictated By: JASON PEDERSEN/DEVIKA Conf#: [id number] DID#: [id number]
== END 2016-05-08 18:20 | disposition home or self-care (01) | DRG 519 ==
LOC: REC 10:01 → MS1 18:20
PROVIDERS: ADMIT Specialist; ATTEND Specialist
PROC: 00UT0JZ Supplement Spinal Meninges with Synthetic Substitute, Open Approach (ICD-10-PCS; 2016-05-05)
PROC: 01NB0ZZ Release Lumbar Nerve, Open Approach (ICD-10-PCS; principal; 2016-05-05 12:00)
DX: M43.16 Spondylolisthesis, lumbar region (principal); G96.11 Dural tear; M48.06 Spinal stenosis, lumbar region; R51 Headache; E03.9 Hypothyroidism, unspecified
CPT/HCPCS: 72100; 80048; 83735; 85025; 85651; 86999; 88304; 88311; 97116; 97162; 97530; C9250; J0330; J0690; J1100; J1170; J2175; J2250; J2405; J2710; J3010; J3480; J7040; J7120